=== PATIENT | female | born 1980 | race Caucasian/White ===

== ENCOUNTER 2024-07-12 09:40 | Emergency (ER) | payer BC, SELFPAY ==
--- NOTE | ~2024-07-12 | CT_ITS ---
EXAMINATION: CT ABDOMEN AND PELVIS WITHOUT CONTRAST CLINICAL INFORMATION: Bilateral flank pain. COMPARISON: None available. TECHNIQUE: Multidetector volumetric imaging was performed from the superior aspect of the liver through the pubic symphysis. Sagittal and coronal reformatted images were obtained on the technologist's workstation. This CT examination was performed using dose optimization techniques as appropriate, variously including the following: *Automated exposure control *Adjustment of mA and/or kV according to patient size (this includes techniques or standardized protocols for targeted exams where dose is matched to indication/reason for exam; i.e. extremities or head) *Use of iterative reconstruction technique. DLP: 424 mGy centimeter. FINDINGS: Inadequate evaluation of the intra-abdominal organs and vascular structures due to lack of IV contrast. LUNG BASES: Patchy pulmonary groundglass in the periphery of the right lung base. LIVER, GALLBLADDER, AND BILIARY TREE: There are measures 15 cm. No intrahepatic biliary ductal dilatation. No pericholecystic fluid collection or gallbladder wall thickening. Common bile duct measures 3 mm. PANCREAS: No peripancreatic fluid collection. No main pancreatic ductal dilatation. SPLEEN: 8 cm. ADRENAL GLANDS: No nodular lesions. KIDNEYS AND URETERS: No hydronephrosis in either kidney. 1 mm calcification in the posterior midportion of the left pelvicalyceal system. BLADDER: Fluid-filled. GASTROINTESTINAL TRACT: Appendix is normal. Abundant stool, large intestine. No intestinal obstruction pattern. Collapsed appearance of the distal descending colon and proximal sigmoid colon. No pneumatosis intestinalis. Trace amount of free fluid in the cul-de-sac. No pneumoperitoneum. ABDOMINAL WALL: Small tiny fat-containing umbilical hernia. LYMPH NODES: Nonspecific mildly prominent mesenteric and retroperitoneal lymph nodes. VASCULAR: No aneurysm, abdominal aorta. PELVIC VISCERA: No gross enlargement. OSSEOUS STRUCTURES: Spondylosis L5-S1. No acute fracture or listhesis. No lytic or blastic lesions. CT/CT abdomen pelvis wo IV con IMPRESSION: Nonobstructing nephrolithiasis left kidney. Small fat-containing umbilical hernia. Segmental wall thickening versus peristalsis, distal descending colon/proximal sigmoid colon. Spondylosis, L5-S1. Fleischner guidelines were followed. Electronically signed by: Mark Morgan MD 07/12/2024 02:59 PM EDT
[2024-07-12 09:49] VITALS: BP 128/57; PULSE 67; RESP 16; TEMP 36.4; O2SAT 100; BMI 24.8
[2024-07-12 11:21] LABS: MANUAL DIFF FLAG NO
[2024-07-12 11:24] LABS: Appearance Urine Clear; Color Urine Yellow; Glucose Urine UA Negative (Negative); Leukocyte Esterase Urine Negative (Negative); Nitrite Urine Negative (Negative); Urine Blood Negative (Negative); Urine Ketones Negative (Negative); Urine Protein Negative (Neg-Trace)
[2024-07-12 11:26] LABS: Basophils Absolute Auto 0.1 X10*3/uL (0.0-0.2); Basophils Percent Auto 1.1 % (0-2); Eosinophils Absolute Auto 0.4 X10*3/uL (0.0-0.4); Eosinophils Percent Auto 4.3 % (0-4); Hematocrit 42.5 % (37.0-47.0); Hemoglobin 14.4 g/dl (12.0-16.0); Imm Gran Abs Auto 0.04 X10*3/uL (0.00-0.03); Imm Gran Pct Auto 0.5 % (0.0-0.4); Lymphocytes Absolute Auto 1.7 X10*3/uL (1.2-4.9); Lymphocytes Percent Auto 20.3 % (20-40); Mean Corpuscular HGB Conc 33.9 g/dl (31.0-35.0); Mean Corpuscular Hemoglobin 31.8 pg (27.0-33.0); Mean Corpuscular Volume 93.8 fL (80.0-98.0); Mean Platelet Volume 10.4 fL (9.4-12.3); Monocytes Absolute Auto 0.7 X10*3/uL (0.1-1.2); Monocytes Percent Auto 8.5 % (2-11); Neutrophils Absolute Auto 5.3 x10*3/uL (2.0-8.3); Neutrophils Percent Auto 65.3 % (45-73); Platelet Count 214 X10*3/uL (160-400); Red Blood Count 4.53 X10*6/uL (4.20-5.50); Red Cell Distribution Width 13.1 % (11.0-16.0); White Blood Count 8.1 X10*3/uL (4.8-10.8)
[2024-07-12 11:26] LABS: Bacteria Urine None Seen (None Seen); Hyaline Casts Urine 0-2 /LPF (0-2); RBC Urine 0-2 /HPF (0-2); Squamous Epithelial Cell Urine 0-2 /HPF (0-2); WBC Urine 0-5 /HPF (0-5)
[2024-07-12 11:44] LABS: Anion Gap 11 (12-20); Blood Urea Nitrogen 8 mg/dL (9-16); Calcium 9.8 mg/dL (8.4-10.2); Carbon Dioxide 26 mmol/L (22-29); Chloride 106 mmol/L (96-108); Creatinine Clr Calc Pharmacy 93.5; Estimated Glomerular Filt Rate > 60; Glucose Random 87 mg/dL (60-115); Potassium 5.2 mmol/L (3.3-5.1); Sodium 138 mmol/L (135-145)
--- NOTE | 2024-07-12 12:37 | ED.BACK ---
HPI - Back Pain/Injury General Chief Complaint: Back Pain/Injury Stated Complaint: Back Pain, Lump On Rib Cage- L Side Time Seen by Provider: 07/12/24 11:56 Source: patient and RN notes reviewed Mode of arrival: ambulatory Limitations: no limitations History of Present Illness ED Provider: Elizabeth Mc PA-C HPI Narrative: This is a 43-year-old female, with a past medical history of bipolar disorder and chronic back pain, who presents emergency department for evaluation of acute on chronic back pain x 1 month. Patient states that she has a history of back pain and states that she has known degenerative disc disease in her low back. She denies any known injury or trauma however states that over this last month her back pain has worsened. She states that over this past week her pain worsened even more. She describes this aching pain in her lower back that occasionally radiates into her buttocks. She denies any saddle anesthesia. No urinary or bowel retention or incontinence. She does report urinary frequency, urgency. No dysuria or hematuria. She does endorse generalized fatigue. She was seen by [facility] urgent care where she was initially told that she had a UTI, and was started on antibiotics however was called the next day stating that this was not a urinary tract infection. She states that she was then seen at [facility] where she only had a urine performed, which was unremarkable. Patient reports that she continues to have pain. Pain worsens with movement and with palpation. She does endorse slight nausea. Denies chance of . No abnormal vaginal discharge or bleeding. She denies any fevers, chills, chest pain, shortness of breath, abdominal pain, vomiting or diarrhea. Denies history of IVDA. No other complaints or concerns at this time. MD elicited complaint: back pain Onset (ago): day(s) Timing: constant Severity: moderate Similar Symptoms Previously: No Quality: aching Location: lumbar spine Radiation: none Exacerbating factors: movement Associated symptoms: denies other symptoms Work related injury: No Related Data Previous Rx's ?Medication ?Instructions ?Recorded acetaminophen 500 mg tablet 1,000 mg (2 x 500 mg) PO QID PRN 07/12/24 (Tylenol Extra Strength) pain #30 tabs cyclobenzaprine 10 mg tablet 10 mg PO TID PRN muscle spasm #10 07/12/24 tabs lidocaine 5 % topical patch 1 patch topical DAILY #30 ea 07/12/24 prednisone 20 mg tablet 40 mg (2 x 20 mg) PO DAILY 5 days 07/12/24 #10 tabs Allergies Allergy/AdvReac Type Severity Reaction Status Date / Time cat dander [cats] Allergy Rash Verified 07/12/24 09:51 acetaminophen [From Vicodin] AdvReac Vomiting Verified 07/12/24 09:51 hydrocodone [From Vicodin] AdvReac Vomiting Verified 07/12/24 09:51 oxycodone [From Percocet] AdvReac Vomiting Verified 07/12/24 09:51 metals Allergy Rash Uncoded 07/12/24 09:51 Review of Systems Review of Systems: Yes all other systems are reviewed and are negative Constitutional: Constitutional: Reports as per [facility] Past Medical History Attestation statement: The following information was validated with the patient. Social History Social History Smoked in Last 30 Days: No Substance Use Type: Marijuana Advance Directives: No Advance Directives Information Provided: Yes Physical Exam Vital Signs: Vital Signs: Last Vital Signs Temp 97.8 F 07/12/24 16:01 Pulse 50 07/12/24 16:01 Resp 18 07/12/24 16:01 BP 128/62 07/12/24 16:01 Pulse Ox 98 07/12/24 16:01 O2 Del Method Room Air 07/12/24 16:01 BMI result Body Mass Index 24.8 Const: General: cooperative, comfortable and no acute distress Orientation/consciousness: patient oriented x3 Limitations: no limitations HEENT: Head: Yes normal to inspection, Yes normocephalic and Yes atraumatic Ears: hearing grossly normal bilaterally General nose exam: Normal external nose present Face and sinus: Yes normal facial exam Mouth: Normal oral and palatal mucosa present, oropharynx normal and moist mucous membranes Throat: Yes posterior oropharynx normal Eyes: General: appearance normal, both eyes and all related structures Eyelids: Yes eyelids normal Conjunctivae: conjunctivae normal Sclerae: sclerae normal Pupils: Equal, round and reactive pupils present EOM: EOMs intact bilaterally Neck: Neck: Yes normal visual inspection, Yes full ROM and Yes no lymphadenopathy Lymphatic: no lymphadenopathy noted Chest: Other: Left lateral chest wall overlying the 9th rib cage approximately, there is a 1 mm x 1 mm mobile mass, nontender to palpation, no overlying erythema or warmth. No drainage. Chest palpation & inspection: normal inspection of the chest Resp: Effort & Inspection: normal respiratory effort and able to speak in complete sentences Auscultation: clear to auscultation bilaterally, no crackles, no rales, no rhonchi and no wheezes Cardio: Rate: regular rate Rhythm: regular rhythm Heart sounds: S1 normal heart sound present and S2 normal heart sound present GI: Inspection: Yes normal to inspection : General: Yes no CVA tenderness Back/Spine/Pelvis: Other: Patient with tenderness palpation along her lumbar paraspinous muscles Distal sensation circulation intact. Strength 5/5 in lower extremities. No calf tenderness. No pedal edema. No overlying skin changes. Back: no CVA tenderness Thoracic/Lumbar Spine: thoracic and lumbar spine normal to inspection Skin: General skin exam: no rashes or lesions noted Trauma: no lacerations or abrasions Wounds: no wounds Neuro: General: patient oriented x3 and moves all extremities Cranial nerves: Yes Equal, round and reactive pupils present Extrem: General: Yes normal to inspection Right upper extremity: normal to inspection Left upper extremity: normal to inspection Right lower extremity: normal to inspection Left lower extremity: normal to inspection Course Reevaluation(s) Reevaluation #1: CT revealing nonobstructing nephrolithiasis left kidney, small fat containing umbilical hernia, segmental wall thickening versus peristalsis the distal descending colon/proximal sigmoid colon, and spondylosis at L5-S1. Discussed these findings with patient. Her abdomen is soft and nontender therefore further treatment for possible wall thickening not indicated however I discussed with patient that she needs to follow-up with your primary care physician. She states that she has not had any colonoscopies done before, this may be indicated. Urine does not appear to be infected. Labs revealing no leukocytosis, stable H&H, slight hyperkalemia at 5.2, medicated with 1 time dose of Lokelma. EKG revealing sinus bradycardia at a ventricular rate of 46 beats per minute, no ST elevation or depression. Patient did have slight bradycardia during her visit however she was asymptomatic. States that she has a history of this. Discussed overall workup today, will treat with prednisone, anti-inflammatories, muscle relaxants, and Lidoderm patches. Given strict return precautions. She understands and agrees with plan. Patient stable for discharge. Medications Administered Discontinued Medications Generic Name Dose Route Start Last Admin Trade Name Debi PRN Reason Stop Dose Admin Ketorolac Tromethamine 30 mg 07/12/24 12:53 07/12/24 13:13 Ketorolac Tromethamine 30 Mg/Ml Vial IVPUSH 07/12/24 12:54 30 mg ONCE ONE Administration Ondansetron HCl 4 mg 07/12/24 12:53 07/12/24 13:12 Ondansetron Hcl 4 Mg/2 Ml Vial IVPUSH 07/12/24 12:54 4 mg ONCE ONE Administration Sodium Zirconium Cyclosilicate 10 gm 07/12/24 15:37 07/12/24 15:44 Sodium Zirconium Cyclosilicate 10 Gm Powd.Pack PO 07/12/24 15:38 10 gm ONCE ONE Administration Medical Decision Making Medical Decision Making [facility] Narrative: This is a 43-year-old female, with a history of chronic back pain, and bipolar disorder, who presents emergency department with complaints of acute on chronic back pain. Pain radiates into her buttocks. She also reports urinary symptoms. On arrival, vital signs within normal limits. She is speaking in full sentences under no acute distress. She was ambulatory with steady gait. This patient presents with back pain most consistent with lumbar radiculopathy. Differential diagnoses includes lumbago versus musculoskeletal spasm / strain versus sciatica.No back pain red flags on history or physical. Presentation not consistent with malignancy (lack of history of malignancy, lack of B symptoms), fracture (no trauma, no bony tenderness to palpation), cauda equina syndrome (no bowel or urinary incontinence/retention, no saddle anesthesia, no distal weakness), Given that she does report urinary frequency and urgency, will obtain CT to rule out renal colic versus pyelonephritis. Plan: Labs, UA, CT Differential Diagnosis Differential Diagnoses: The differential diagnosis associated with the presentation includes See above Admission/Observation Consideration of admission/observation: Escalation of care including admission/observation considered Lab Data [facility] Lab Attestation statement: I reviewed the patient's lab results. See MDM and course comment 07/12/24 11:16 07/12/24 11:16 Labs: Lab Results 07/12/24 07/12/24 Range/Units 11:13 11:16 WBC 8.1 (4.8-10.8) X10*3/uL RBC 4.53 (4.20-5.50) X10*6/uL Hgb 14.4 (12.0-16.0) g/dl Hct 42.5 (37.0-47.0) % MCV 93.8 (80.0-98.0) fL MCH 31.8 (27.0-33.0) pg MCHC 33.9 (31.0-35.0) g/dl RDW 13.1 (11.0-16.0) % Plt Count 214 (160-400) X10*3/uL MPV 10.4 (9.4-12.3) fL Immature Gran % (Auto) 0.5 H (0.0-0.4) % Neut % (Auto) 65.3 (45-73) % Lymph % (Auto) 20.3 (20-40) % [place] % (Auto) 8.5 (2-11) % Eos % (Auto) 4.3 H (0-4) % Baso % (Auto) 1.1 (0-2) % Lymph # (Auto) 1.7 (1.2-4.9) X10*3/uL [place] # (Auto) 0.7 (0.1-1.2) X10*3/uL Eos # (Auto) 0.4 (0.0-0.4) X10*3/uL Baso # (Auto) 0.1 (0.0-0.2) X10*3/uL Abs Immat Gran (auto) 0.04 H (0.00-0.03) X10*3/uL Absolute Neuts (auto) 5.3 (2.0-8.3) x10*3/uL Absolute Nucleated RBC 0.000 (0.0-0.012) X10*3/uL Nucleated RBC % (auto) 0.0 (0.0-0.2) /100WBC Sodium 138 (135-145) mmol/L Potassium 5.2 H (3.3-5.1) mmol/L Chloride 106 (96-108) mmol/L Carbon Dioxide 26 (22-29) mmol/L Anion Gap 11 L (12-20) BUN 8 L (9-16) mg/dL Creatinine 0.71 (0.5-1.4) mg/dL Estim Creat Clear Calc 93.5 Estimated GFR > 60 Random Glucose 87 (60-115) mg/dL Calcium 9.8 (8.4-10.2) mg/dL Beta HCG, Quant < 2 mIU/mL Urine Color Yellow Urine Appearance Clear Urine pH 6.0 (5.0-9.0) Ur Specific [place] 1.010 (1.005-1.025) Urine Protein Negative (Neg-Trace) mg/dL Urine Glucose (UA) Negative (Negative) mg/dL Urine Ketones Negative (Negative) mg/dL Urine Blood Negative (Negative) Urine Nitrite Negative (Negative) Ur Leukocyte Esterase Negative (Negative) Urine RBC 0-2 (0-2) /HPF Urine WBC 0-5 (0-5) /HPF Ur Squamous Epith Cells 0-2 (0-2) /HPF Urine Bacteria None Seen (None Seen) Hyaline Casts 0-2 (0-2) /LPF Independent Interpretation I performed an independent interpretation of an: EKG Interpretation: See course comment Radiology Impression Discussion of test interpretation with radiology: I have reviewed the radiologist's reading. Radiologist Impression: [place] [id number] CT Scan Report Signed Patient: Amber Teixeira MR#: [id number] : 1980 Acct:[id number] Age/Sex: 43 / F ADM Date: 07/12/24 Loc: .ED Attending Dr: Ordering Physician: Elizabeth Mc Date of Service: 07/12/24 Procedure(s): CT abdomen pelvis wo IV con Accession Number(s): [id number] cc: Elizabeth Mc; Physician,Unknown ~ Report Number: [id number]: Total DLP = 424.00 mGy-cm EXAMINATION: CT ABDOMEN AND PELVIS WITHOUT CONTRAST CLINICAL INFORMATION: Bilateral flank pain. COMPARISON: None available. TECHNIQUE: Multidetector volumetric imaging was performed from the superior aspect of the liver through the pubic symphysis. Sagittal and coronal reformatted images were obtained on the technologist's workstation. This CT examination was performed using dose optimization techniques as appropriate, variously including the following: *Automated exposure control *Adjustment of mA and/or kV according to patient size (this includes techniques or standardized protocols for targeted exams where dose is matched to indication/reason for exam; i.e. extremities or head) *Use of iterative reconstruction technique. DLP: 424 mGy centimeter. FINDINGS: Inadequate evaluation of the intra-abdominal organs and vascular structures due to lack of IV contrast. LUNG BASES: Patchy pulmonary groundglass in the periphery of the right lung base. LIVER, GALLBLADDER, AND BILIARY TREE: There are measures 15 cm. No intrahepatic biliary ductal dilatation. No pericholecystic fluid collection or gallbladder wall thickening. Common bile duct measures 3 mm. PANCREAS: No peripancreatic fluid collection. No main pancreatic ductal dilatation. SPLEEN: 8 cm. ADRENAL GLANDS: No nodular lesions. KIDNEYS AND URETERS: No hydronephrosis in either kidney. 1 mm calcification in the posterior midportion of the left pelvicalyceal system. BLADDER: Fluid-filled. GASTROINTESTINAL TRACT: Appendix is normal. Abundant stool, large intestine. No intestinal obstruction pattern. Collapsed appearance of the distal descending colon and proximal sigmoid colon. No pneumatosis intestinalis. Trace amount of free fluid in the cul-de-sac. No pneumoperitoneum. ABDOMINAL WALL: Small tiny fat-containing umbilical hernia. LYMPH NODES: Nonspecific mildly prominent mesenteric and retroperitoneal lymph nodes. VASCULAR: No aneurysm, abdominal aorta. PELVIC VISCERA: No gross enlargement. OSSEOUS STRUCTURES: Spondylosis L5-S1. No acute fracture or listhesis. No lytic or blastic lesions. CT/CT abdomen pelvis wo IV con IMPRESSION: Nonobstructing nephrolithiasis left kidney. Small fat-containing umbilical hernia. Segmental wall thickening versus peristalsis, distal descending colon/proximal sigmoid colon. Spondylosis, L5-S1. Fleischner guidelines were followed. Electronically signed by: Mark Morgan MD 07/12/2024 02:59 PM EDT RP Dictated By: Mark Vo MD Discharge Plan Discharge Clinical Impression: Back pain Patient Disposition: Home, Self-Care Instructions: Back Pain (ED) Additional Instructions: You were seen in the emergency department due to back pain. Your CT scan showed several things including a nonobstructing kidney stone on the left. You also have a umbilical hernia. You also have question of segmental wall thickening versus peristalsis > follow-up with your primary care physician, and have routine colonoscopy indicated. You also have spondylosis, this is wear and tear on your L5-S1 region. You likely have lumbar radiculopathy causing you to have this pain. Blood work today was overall reassuring, you have no significant white blood cell count to indicate an infection. You had slight high potassium therefore we gave you a 1 time dose of a medication to lower your potassium. Your kidney function is within normal limits. Your urine does not appear to be infected. Please drink plenty of fluids get plenty of rest. If any new or worsening symptoms occur including but not limited to severe chest pain, shortness of breath, severe back pain, numbness tingling into your groin, loss of bladder or bowel control, please seek emergent care. You likely have something called lumbar radiculopathy, this is nerve compression caused by inflammation in your back. Please take prescribed medication as directed. Prednisone is a steroid, this helps decrease inflammation. Please take Tylenol and or ibuprofen as needed for pain and symptoms. Flexeril as a muscle relaxants, please take as prescribed, please be advised that this can cause drowsiness, do not drink alcohol or drive while taking this medication. Prescriptions: New prednisone 20 mg tablet 40 mg PO DAILY 5 Days Qty: 10 0RF cyclobenzaprine 10 mg tablet 10 mg PO TID PRN (Reason: muscle spasm) Qty: 10 0RF acetaminophen [Tylenol Extra Strength] 500 mg tablet 1,000 mg PO QID PRN (Reason: pain) Qty: 30 0RF lidocaine 5 % adhesive patch,medicated 1 patch topical DAILY Qty: 30 0RF Rx Instructions: leave on most painful area for up to 12 hrs Stand Alone Forms: Work/School Release Interventions: ED Discharge Assessment Last Done: 07/12/24 16:01 Discharge Date/Time: 07/12/24 16:02 Print Language: Croatian
--- NOTE | 2024-07-12 12:53 | ECG_ITS ---
Test Reason : HYPERKALEMIA Blood Pressure : */* mmHG Vent. Rate : 46 BPM Atrial Rate : 46 BPM P-R Int : 138 ms QRS Dur : 86 ms QT Int : 422 ms P-R-T Axes : 55 69 62 degrees QTcB Int : 369 ms Sinus bradycardia Otherwise normal ECG No previous ECGs available Referred By: Elizabeth Mc Electronically Signed By: David Matta
[2024-07-12] MEDS: ondansetron HCL 4 MG/2 ML VIAL IVPUSH (13:12)
[2024-07-12] MEDS: Ketorolac Tromethamine 30 MG/ML VIAL IVPUSH (13:13)
[2024-07-12 13:36] VITALS: BP 107/51; PULSE 45; RESP 16; TEMP 37.1; O2SAT 100
[2024-07-12 14:17] LABS: HCG Quantitative < 2 mIU/mL
[2024-07-12] MEDS: Sodium Zirconium Cyclosilicate 10 GM POWD.PACK PO (15:44)
[2024-07-12 15:55] VITALS: BP 128/62; PULSE 50; RESP 18; TEMP 36.6; O2SAT 98
[2024-07-12 16:01] VITALS: BP 128/62; PULSE 50; RESP 18; TEMP 36.6; O2SAT 98
== END 2024-07-12 16:02 | disposition home or self-care (01) ==
PROVIDERS: Physician Assistant Medical; Emergency Provider Emergency Medicine
DX: M54.50 Low back pain, unspecified (principal); R00.1 Bradycardia, unspecified; R10.9 Unspecified abdominal pain; R10.2 Pelvic and perineal pain; R11.0 Nausea; R35.0 Frequency of micturition; R39.15 Urgency of urination
CPT/HCPCS: 36415; 74176; 80048; 81001; 84702; 85025; 93005; 96374; 96375; 99284; J1885; J2405

== ENCOUNTER → 2024-07-12 12:53 | Outpatient (BNV) | payer BC, SELFPAY | PROVIDERS: Emergency Provider Emergency Medicine; Visit Provider Internal Medicine Cardiovascular Disease | DX: R00.1 Bradycardia, unspecified (principal); E87.5 Hyperkalemia; R10.9 Unspecified abdominal pain | CPT/HCPCS: 93010 ==

== ENCOUNTER → 2024-07-12 12:53 | Outpatient (BNV) | payer BC, SELFPAY | PROVIDERS: Emergency Provider Emergency Medicine; Visit Provider Radiology Diagnostic Radiology | DX: R10.9 Unspecified abdominal pain (principal); N20.0 Calculus of kidney; K42.9 Umbilical hernia without obstruction or gangrene | CPT/HCPCS: 74176 ==